=== PATIENT | female | born 1930 | race Caucasian/White ===

== ENCOUNTER 2016-08-18 12:34 | Outpatient (CLI) | payer OTHER ==
--- NOTE | 2016-08-18 13:20 | DIAGNOSTIC IMAGING REPORT ---
PROCEDURE: XR SHOULDER 2 OR MORE VW-RIGHT INDICATION: RIGHT SHOULDER PAIN TECHNIQUE: Three views. COMPARISON: None. FINDINGS: Calcific tendonitis. No fracture or dislocation. IMPRESSION: 1. Calcific tendonitis
--- NOTE | 2016-08-18 13:24 | DIAGNOSTIC IMAGING REPORT ---
PROCEDURE: XR HIP 2VW W W/O AP PELVIS-LT INDICATION: RIGHT SHOULDER PAIN/LEFT HIP,JOINT PAIN TECHNIQUE: AP view of the pelvis and hips with lateral view of the left hip. COMPARISON: None. FINDINGS: Left HIP: Total hip prosthesis, no fracture or dislocation. PELVIS: Osseous pelvis is normal. IMPRESSION: 1. 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
== END 2016-08-18 23:00 ==
LOC: XR SRH 12:34
DX: M75.31 Calcific tendinitis of right shoulder (principal); M25.552 Pain in left hip